=== PATIENT | female | born 2005 | race African-American/Black ===

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

== ENCOUNTER 2024-07-15 08:19 | Emergency (ER) | payer OTHER ==
[2024-07-15 08:45] VITALS: BP 141/96; PULSE 92; RESP 20; TEMP 98.2; BMI 22.8
[2024-07-15] MEDS ORDERED: ACETAMINOPHEN 325 MG TABLET (FP) ONE (08:46)
[2024-07-15] MEDS ORDERED: IBUPROFEN 600 MG TABLET (FP) PO ONE (08:46)
[2024-07-15] MEDS: IBUPROFEN 600 MG TABLET (FP) PO ONE (08:49)
[2024-07-15] MEDS: ACETAMINOPHEN 325 MG TABLET (FP) PO ONE (08:49)
== END 2024-07-15 09:12 | disposition home or self-care (01) ==
LOC: FER 08:19
DX: N75.1 Abscess of Bartholin's gland (principal)
CPT/HCPCS: 99282-25